=== PATIENT | male | born 1950 | race Caucasian/White ===

== ENCOUNTER 2017-12-08 23:13 | Inpatient (IN) | payer MEDICARE, OTHER ==
[~2017-12-08] VITALS: Ht 182.9 cm; Wt 76.2 kg
[2017-12-08] MEDS ORDERED: LOSA25TA13 PO (23:20)
[2017-12-08] MEDS ORDERED: HYDR-3326 PO (23:20)
[2017-12-08] MEDS ORDERED: ASPI81TA31 PO (23:20)
[2017-12-08] MEDS ORDERED: BUSP10TA3 PO (23:20)
[2017-12-08] MEDS ORDERED: CARV6.25 PO (23:20)
[2017-12-08] MEDS ORDERED: DOCU100C36 PO (23:20)
[2017-12-08 23:52] LABS: BASOPHILS % (AUTO) 0.6 % (0.0-2.0); EOSINOPHILS # (AUTO) 0.3 K/uL (0.0-0.7); EOSINOPHILS % (AUTO) 3.6 % (0.0-7.0); HEMATOCRIT 35.8 % (36.7-47.1); HEMOGLOBIN 12.4 g/dL (12.5-16.3); LYMPHOCYTES # (AUTO) 1.8 K/uL (20.0-40.0); MEAN CORPUSCULAR HEMOGLOBIN 30.8 uug (23.8-33.4); MEAN CORPUSCULAR HGB CONC 35 g/dL (32.5-36.3); MEAN CORPUSCULAR VOLUME 89.2 fL (73.0-96.2); MONOCYTES # (AUTO) 0.6 K/uL (2.0-10.0); MONOCYTES % (AUTO) 7.3 % (0.0-11.0); NEUTROPHILS # (AUTO) 5.4 K/uL (1.8-8.9); NEUTROPHILS % (AUTO) 66.5 % (38.5-71.5); PLATELET COUNT (AUTO) 171 K/uL (152-348); RED BLOOD CELL COUNT(AUTO) 4.02 MIL/uL (4.06-5.63); WHITE BLOOD COUNT (AUTO) 8.1 K/uL (3.6-10.2)
[2017-12-09] LABS: CARBON DIOXIDE 27 mmol/L (21-32); CHLORIDE 99 mmol/L (98-107); POTASSIUM 4.8 mmol/L (3.5-5.1); UREA NITROGEN, BLOOD 34 mg/dL (7-18)
[2017-12-09 00:02] LABS: GLUCOSE 463 mg/dL (74-106)
[2017-12-09] MEDS ORDERED: INSULIN REGULAR, HUMAN 1,000 UNITS/10 ML VIAL IV ONE (00:03)
[2017-12-09 00:06] LABS: ALANINE AMINOTRANSFERASE 27 U/L (16-63); ALKALINE PHOSPHATASE 96 U/L (50-136); ASPARTATE AMINOTRANSFERASE 11 U/L (15-37); BILIRUBIN,DIRECT 0.2 mg/dL (0.0-0.2); BILIRUBIN,TOTAL 0.8 mg/dL (0.2-1.0); TOTAL PROTEIN, SERUM 7.4 g/dL (6.4-8.2)
[2017-12-09 00:09] LABS: ACETAMINOPHEN < 2.0 ug/mL (10-30); ETHANOL < 3 MG/DL (0-0)
[2017-12-09 00:10] LABS: *BILIRUBIN,URIN NEGATIVE (NEGATIVE); *BLOOD, URINE NEGATIVE (NEGATIVE); *CLARITY,URINE CLEAR (CLEAR); *COLOR,URINE YELLOW (YELLOW); *KETONES,URINE NEGATIVE (NEGATIVE); *PROTEIN,URINE 1+ (NEGATIVE); *UROBILINOGEN,URINE 0.2 E.U./dl (NORMAL); LEUKOCYTE ESTERASE ,URINE NEGATIVE (NEGATIVE); NITRITE, URINE NEGATIVE (NEGATIVE)
[2017-12-09] MEDS ORDERED: IV NS 1000 ML 1,000 ML IV ONE (00:15)
[2017-12-09 00:21] LABS: *AMPHETAMINE, URINE NEGATIVE (NEGATIVE); *BARBITURATE, URINE NEGATIVE (NEGATIVE); *CANNABINOID, URINE NEGATIVE (NEGATIVE); *COCCAINE, URINE NEGATIVE (NEGATIVE); *OPIATE, URINE NEGATIVE (NEGATIVE); *PHENCYCLIDINE SCREEN,URINE NEGATIVE (NEGATIVE)
[2017-12-09 00:22] LABS: UGLUCOSE 3+ (NEGATIVE)
[2017-12-09 00:29] LABS: RBC,URINE 0-3 /HPF (0-3)
[2017-12-09 00:30] LABS: BACTERIA,URINE NONE SEEN /HPF (NONE SEEN); SQUAMOUS EPITHELIAL CELL,UR FEW /HPF (NONE SEEN); WBC,URINE 0-3 /HPF (0-3)
[2017-12-09] MEDS ORDERED: LORAZEPAM 0.5 MG TABLET PO PRN (02:45)
[2017-12-09] MEDS ORDERED: ACETAMINOPHEN 325 MG TABLET PO PRN (02:45)
[2017-12-09] MEDS ORDERED: MAG HYDROX/AL HYDROX/SIMETH 30 ML LIQUID UDC PO PRN (02:45)
[2017-12-09] MEDS ORDERED: MAGNESIUM HYDROXIDE 30 ML LIQUID UDC PO PRN (02:45)
[2017-12-09] MEDS ORDERED: TEMAZEPAM 7.5 MG CAPSULE PO PRN (02:45)
[2017-12-09] MEDS ORDERED: CLONIDINE HCL 0.1 MG TABLET PO SCH (03:30)
[2017-12-09 07:30] VITALS: BP 191/89
[2017-12-09] MEDS ORDERED: DEXTROSE 50% 50 ML DISP.SYRIN IV PRN (11:00)
[2017-12-09] MEDS: ASPIRIN 81 MG TAB.CHEW PO SCH (11:16)
[2017-12-09] MEDS: CARVEDILOL 6.25 MG TABLET PO SCH ×2 (11:16→17:44)
[2017-12-09] MEDS: LOSARTAN POTASSIUM 25 MG TABLET PO SCH (11:17)
[2017-12-09] MEDS: Z GUARD REMEDY PASTE 57 GM TUBE TOP SCH (11:26)
[2017-12-09] MEDS ORDERED: risperiDONE 0.5 MG TABLET PO SCH (11:45)
[2017-12-09] MEDS: BLOOD SUGAR DIAGNOSTIC 1 EACH STRIP VI SCH ×3 (12:07→20:19)
[2017-12-09] MEDS: INSULIN REGULAR, HUMAN 300 UNIT/3 ML VIAL SQ PRN ×2 (12:20→17:00)
[2017-12-09] MEDS: BENZTROPINE MESYLATE 0.5 MG TABLET PO SCH ×2 (12:39→17:45)
[2017-12-09 16:18] VITALS: BP 110/74
[2017-12-09] MEDS: busPIRone 5 MG TABLET PO SCH (17:44)
[2017-12-09] MEDS ORDERED: METFORMIN HCL 500 MG TABLET PO SCH (18:00)
[2017-12-09 20:05] VITALS: BP 159/67
[2017-12-09] MEDS: INSULIN REGULAR, HUMAN 300 UNITS/3 ML VIAL SQ PRN (20:16)
[2017-12-09] MEDS: risperiDONE 1 MG TABLET PO SCH (20:19)
[2017-12-09] MEDS: DIVALPROEX 250 MG TABLET.DR PO SCH (20:19)
[2017-12-09] MEDS ORDERED: INSULIN GLARGINE,HUM 300 UNITS/3 ML CARTRIDGE SQ SCH (21:00)
[2017-12-10] MEDS: BLOOD SUGAR DIAGNOSTIC 1 EACH STRIP VI SCH ×4 (06:23→21:12)
[2017-12-10] MEDS: INSULIN REGULAR, HUMAN 300 UNIT/3 ML VIAL SQ PRN ×3 (08:01→17:32)
[2017-12-10] MEDS: CARVEDILOL 6.25 MG TABLET PO SCH ×2 (08:04→17:00)
[2017-12-10] MEDS: ASPIRIN 81 MG TAB.CHEW PO SCH (08:05)
[2017-12-10] MEDS: LOSARTAN POTASSIUM 25 MG TABLET PO SCH (08:05)
[2017-12-10] MEDS: DIVALPROEX 250 MG TABLET.DR PO SCH ×2 (08:05→21:11)
[2017-12-10] MEDS: busPIRone 5 MG TABLET PO SCH ×2 (08:05→17:42)
[2017-12-10] MEDS: BENZTROPINE MESYLATE 0.5 MG TABLET PO SCH ×2 (08:05→17:42)
[2017-12-10] MEDS: risperiDONE 1 MG TABLET PO SCH ×2 (08:05→21:11)
[2017-12-10 08:08] VITALS: BP 142/83
[2017-12-10 16:22] VITALS: BP 99/52
[2017-12-10 20:05] VITALS: BP 127/79
[2017-12-10] MEDS: LORAZEPAM 0.5 MG TABLET PO PRN (20:11)
[2017-12-10] MEDS: INSULIN GLARGINE,HUM 300 UNITS/3 ML CARTRIDGE SQ SCH (21:07)
[2017-12-10] MEDS: INSULIN REGULAR, HUMAN 300 UNITS/3 ML VIAL SQ PRN (21:09)
[2017-12-10] MEDS: CLOTRIMAZOLE 1% CREAM 30 GM TUBE TOP SCH ×2 (21:30→22:33)
[2017-12-10] MEDS: NEOMY/BACITRAC/POLYMI OINT 28.35 GM TUBE TOP SCH ×2 (21:30→22:33)
[2017-12-11] MEDS: BLOOD SUGAR DIAGNOSTIC 1 EACH STRIP VI SCH ×4 (06:34→20:24)
[2017-12-11 07:30] VITALS: BP 148/77
[2017-12-11] MEDS: CLOTRIMAZOLE 1% CREAM 30 GM TUBE TOP SCH ×2 (08:35→20:27)
[2017-12-11] MEDS: DIVALPROEX 250 MG TABLET.DR PO SCH ×2 (08:36→20:18)
[2017-12-11] MEDS: CARVEDILOL 6.25 MG TABLET PO SCH ×2 (08:36→16:05)
[2017-12-11] MEDS: risperiDONE 1 MG TABLET PO SCH ×2 (08:36→20:18)
[2017-12-11] MEDS: LOSARTAN POTASSIUM 25 MG TABLET PO SCH (08:36)
[2017-12-11] MEDS: NEOMY/BACITRAC/POLYMI OINT 28.35 GM TUBE TOP SCH (08:36)
[2017-12-11] MEDS: ASPIRIN 81 MG TAB.CHEW PO SCH (08:36)
[2017-12-11] MEDS: busPIRone 5 MG TABLET PO SCH ×2 (08:37→16:05)
[2017-12-11] MEDS: BENZTROPINE MESYLATE 0.5 MG TABLET PO SCH ×2 (08:37→16:05)
[2017-12-11] MEDS: INSULIN REGULAR, HUMAN 300 UNIT/3 ML VIAL SQ PRN ×3 (08:40→16:14)
[2017-12-11 17:40] VITALS: BP 141/79
[2017-12-11] MEDS: LORAZEPAM 0.5 MG TABLET PO PRN (18:56)
[2017-12-11 19:47] VITALS: BP 169/77
[2017-12-11] MEDS: INSULIN GLARGINE,HUM 300 UNITS/3 ML CARTRIDGE SQ SCH (20:55)
[2017-12-12] MEDS: BLOOD SUGAR DIAGNOSTIC 1 EACH STRIP VI SCH ×4 (06:14→21:39)
[2017-12-12 07:30] VITALS: BP 135/85
[2017-12-12] MEDS: ASPIRIN 81 MG TAB.CHEW PO SCH (08:40)
[2017-12-12] MEDS: busPIRone 5 MG TABLET PO SCH ×2 (08:40→17:32)
[2017-12-12] MEDS: CARVEDILOL 6.25 MG TABLET PO SCH ×2 (08:41→17:33)
[2017-12-12] MEDS: BENZTROPINE MESYLATE 0.5 MG TABLET PO SCH ×2 (08:41→17:32)
[2017-12-12] MEDS: LOSARTAN POTASSIUM 25 MG TABLET PO SCH (08:42)
[2017-12-12] MEDS: risperiDONE 1 MG TABLET PO SCH ×3 (08:43→21:38)
[2017-12-12] MEDS: DIVALPROEX 250 MG TABLET.DR PO SCH ×3 (08:48→21:38)
[2017-12-12] MEDS: NEOMY/BACITRAC/POLYMI OINT 28.35 GM TUBE TOP SCH (09:15)
[2017-12-12] MEDS: CLOTRIMAZOLE 1% CREAM 30 GM TUBE TOP SCH ×2 (09:18→21:38)
[2017-12-12] MEDS: INSULIN REGULAR, HUMAN 300 UNIT/3 ML VIAL SQ PRN ×2 (11:52→17:09)
[2017-12-12 16:11] VITALS: BP 132/66
[2017-12-12 19:50] VITALS: BP 128/76
[2017-12-12] MEDS: INSULIN GLARGINE,HUM 300 UNITS/3 ML CARTRIDGE SQ SCH (21:40)
[2017-12-12] MEDS: INSULIN REGULAR, HUMAN 300 UNITS/3 ML VIAL SQ PRN (21:40)
[2017-12-13] MEDS: BLOOD SUGAR DIAGNOSTIC 1 EACH STRIP VI SCH ×4 (06:14→20:48)
[2017-12-13 07:30] VITALS: BP 145/79
[2017-12-13] MEDS: BENZTROPINE MESYLATE 0.5 MG TABLET PO SCH ×2 (08:16→16:15)
[2017-12-13] MEDS: CARVEDILOL 6.25 MG TABLET PO SCH ×2 (08:17→16:16)
[2017-12-13] MEDS: ASPIRIN 81 MG TAB.CHEW PO SCH (08:17)
[2017-12-13] MEDS: risperiDONE 1 MG TABLET PO SCH ×3 (08:17→20:41)
[2017-12-13] MEDS: DIVALPROEX 250 MG TABLET.DR PO SCH ×3 (08:17→20:41)
[2017-12-13] MEDS: LOSARTAN POTASSIUM 25 MG TABLET PO SCH (08:17)
[2017-12-13] MEDS: busPIRone 5 MG TABLET PO SCH ×2 (08:17→16:15)
[2017-12-13] MEDS: NEOMY/BACITRAC/POLYMI OINT 28.35 GM TUBE TOP SCH (08:18)
[2017-12-13] MEDS: CLOTRIMAZOLE 1% CREAM 30 GM TUBE TOP SCH ×2 (08:20→20:48)
[2017-12-13] MEDS: INSULIN REGULAR, HUMAN 300 UNIT/3 ML VIAL SQ PRN ×2 (11:34→16:38)
[2017-12-13 15:53] VITALS: BP 140/70
[2017-12-13 19:59] VITALS: BP 115/73
[2017-12-13] MEDS: INSULIN GLARGINE,HUM 300 UNITS/3 ML CARTRIDGE SQ SCH (20:44)
[2017-12-13] MEDS: INSULIN REGULAR, HUMAN 300 UNITS/3 ML VIAL SQ PRN (20:46)
[2017-12-13] MEDS: Z GUARD REMEDY PASTE 57 GM TUBE TOP SCH (20:47)
[2017-12-14] MEDS: BLOOD SUGAR DIAGNOSTIC 1 EACH STRIP VI SCH ×4 (06:35→20:28)
[2017-12-14 07:30] VITALS: BP 124/67
[2017-12-14] MEDS: risperiDONE 1 MG TABLET PO SCH ×3 (08:32→20:21)
[2017-12-14] MEDS: DIVALPROEX 250 MG TABLET.DR PO SCH ×3 (08:33→20:21)
[2017-12-14] MEDS: ASPIRIN 81 MG TAB.CHEW PO SCH (08:35)
[2017-12-14] MEDS: busPIRone 5 MG TABLET PO SCH ×2 (08:35→16:09)
[2017-12-14] MEDS: CARVEDILOL 6.25 MG TABLET PO SCH ×2 (08:36→16:10)
[2017-12-14] MEDS: LOSARTAN POTASSIUM 25 MG TABLET PO SCH (08:36)
[2017-12-14] MEDS: BENZTROPINE MESYLATE 0.5 MG TABLET PO SCH ×2 (08:37→16:09)
[2017-12-14] MEDS: NEOMY/BACITRAC/POLYMI OINT 28.35 GM TUBE TOP SCH (08:44)
[2017-12-14] MEDS: CLOTRIMAZOLE 1% CREAM 30 GM TUBE TOP SCH ×2 (08:49→20:21)
[2017-12-14] MEDS: INSULIN REGULAR, HUMAN 300 UNIT/3 ML VIAL SQ PRN ×2 (11:43→16:11)
[2017-12-14 15:09] VITALS: BP 125/63
[2017-12-14 20:25] VITALS: BP 124/55
[2017-12-14] MEDS: INSULIN REGULAR, HUMAN 300 UNITS/3 ML VIAL SQ PRN (20:30)
[2017-12-14] MEDS: INSULIN GLARGINE,HUM 300 UNITS/3 ML CARTRIDGE SQ SCH (20:31)
[2017-12-15] MEDS: BLOOD SUGAR DIAGNOSTIC 1 EACH STRIP VI SCH ×4 (06:33→20:45)
[2017-12-15 08:00] VITALS: BP 148/78
[2017-12-15] MEDS: DIVALPROEX 250 MG TABLET.DR PO SCH ×2 (08:17→12:49)
[2017-12-15] MEDS: BENZTROPINE MESYLATE 0.5 MG TABLET PO SCH ×2 (08:17→17:07)
[2017-12-15] MEDS: ASPIRIN 81 MG TAB.CHEW PO SCH (08:17)
[2017-12-15] MEDS: busPIRone 5 MG TABLET PO SCH ×2 (08:17→17:04)
[2017-12-15] MEDS: LOSARTAN POTASSIUM 25 MG TABLET PO SCH (08:18)
[2017-12-15] MEDS: CARVEDILOL 6.25 MG TABLET PO SCH ×2 (08:18→17:05)
[2017-12-15] MEDS: NEOMY/BACITRAC/POLYMI OINT 28.35 GM TUBE TOP SCH (08:26)
[2017-12-15] MEDS: CLOTRIMAZOLE 1% CREAM 30 GM TUBE TOP SCH ×2 (08:27→20:57)
[2017-12-15] MEDS: risperiDONE 1 MG TABLET PO SCH ×3 (08:29→20:39)
[2017-12-15] MEDS: INSULIN REGULAR, HUMAN 300 UNIT/3 ML VIAL SQ PRN (12:25)
[2017-12-15 16:00] VITALS: BP 134/73
[2017-12-15] MEDS: INSULIN REGULAR, HUMAN 300 UNIT/3 ML VIAL SQ SCH (16:30)
[2017-12-15 20:00] VITALS: BP 168/79
[2017-12-15] MEDS: INSULIN GLARGINE,HUM 300 UNITS/3 ML CARTRIDGE SQ SCH (20:47)
[2017-12-15] MEDS: INSULIN REGULAR, HUMAN 300 UNITS/3 ML VIAL SQ PRN (20:52)
[2017-12-15] MEDS ORDERED: DIVALPROEX 500 MG TABLET.DR PO SCH (21:00)
[2017-12-16] MEDS: BLOOD SUGAR DIAGNOSTIC 1 EACH STRIP VI SCH ×2 (06:53→12:10)
[2017-12-16 07:30] VITALS: BP 135/69
[2017-12-16] MEDS: INSULIN REGULAR, HUMAN 300 UNIT/3 ML VIAL SQ SCH ×2 (07:30→13:09)
[2017-12-16 07:35] LABS: BASOPHILS % (AUTO) 0.4 % (0.0-2.0); EOSINOPHILS # (AUTO) 0.1 K/uL (0.0-0.7); EOSINOPHILS % (AUTO) 1.4 % (0.0-7.0); HEMATOCRIT 34.4 % (36.7-47.1); HEMOGLOBIN 11.8 g/dL (12.5-16.3); LYMPHOCYTES # (AUTO) 1.5 K/uL (20.0-40.0); LYMPHOCYTES % (AUTO) 22.6 % (20.5-51.5); MEAN CORPUSCULAR HEMOGLOBIN 30.9 uug (23.8-33.4); MEAN CORPUSCULAR HGB CONC 34 g/dL (32.5-36.3); MEAN CORPUSCULAR VOLUME 90.3 fL (73.0-96.2); MONOCYTES # (AUTO) 0.6 K/uL (2.0-10.0); NEUTROPHILS # (AUTO) 4.4 K/uL (1.8-8.9); NEUTROPHILS % (AUTO) 66.6 % (38.5-71.5); PLATELET COUNT (AUTO) 139 K/uL (152-348); RED BLOOD CELL COUNT(AUTO) 3.81 MIL/uL (4.06-5.63); WHITE BLOOD COUNT (AUTO) 6.7 K/uL (3.6-10.2)
[2017-12-16 08:13] LABS: BILIRUBIN,TOTAL 0.8 mg/dL (0.2-1.0); CREATININE 1.9 mg/dL (0.6-1.3); MAGNESIUM 1.9 mg/dL (1.8-2.4); PHOSPHOROUS 3.3 mg/dL (2.5-4.9); POTASSIUM 4.4 mmol/L (3.5-5.1); TOTAL PROTEIN, SERUM 7.4 g/dL (6.4-8.2)
[2017-12-16 08:29] LABS: THYROID STIMULATING HORMONE 1.52 mIU/mL (0.358-3.740)
[2017-12-16] MEDS: busPIRone 5 MG TABLET PO SCH (08:54)
[2017-12-16] MEDS: LOSARTAN POTASSIUM 25 MG TABLET PO SCH (08:54)
[2017-12-16] MEDS: risperiDONE 1 MG TABLET PO SCH ×2 (08:54→13:37)
[2017-12-16] MEDS: DIVALPROEX 250 MG TABLET.DR PO SCH ×2 (08:54→13:37)
[2017-12-16] MEDS: CARVEDILOL 6.25 MG TABLET PO SCH (08:55)
[2017-12-16] MEDS: BENZTROPINE MESYLATE 0.5 MG TABLET PO SCH (08:55)
[2017-12-16] MEDS: ASPIRIN 81 MG TAB.CHEW PO SCH (08:55)
[2017-12-16] MEDS: CLOTRIMAZOLE 1% CREAM 30 GM TUBE TOP SCH (09:43)
[2017-12-16] MEDS: NEOMY/BACITRAC/POLYMI OINT 28.35 GM TUBE TOP SCH (09:44)
[2017-12-16] MEDS: INSULIN REGULAR, HUMAN 300 UNIT/3 ML VIAL SQ PRN (13:10)
[2017-12-16 16:22] VITALS: BP 148/66
== END 2017-12-16 16:15 | DRG 885 ==
LOC: ER 23:22 → GPS 12-09 02:00
PROVIDERS: ADMIT Psychiatry & Neurology Psychosomatic Medicine; ATTEND Internal Medicine
DX: F25.0 Schizoaffective disorder, bipolar type (principal); N17.0 Acute kidney failure with tubular necrosis; E11.65 Type 2 diabetes mellitus with hyperglycemia; E11.22 Type 2 diabetes mellitus with diabetic chronic kidney disease; D69.6 Thrombocytopenia, unspecified; L30.4 Erythema intertrigo; D64.9 Anemia, unspecified; Z79.82 Long term (current) use of aspirin; I12.9 Hypertensive chronic kidney disease with stage 1 through stage 4 chronic kidney disease, or unspecified chronic kidney disease; N18.9 Chronic kidney disease, unspecified; F41.9 Anxiety disorder, unspecified; F55.8 Abuse of other non-psychoactive substances; F19.10 Other psychoactive substance abuse, uncomplicated; S41.001A Unspecified open wound of right shoulder, initial encounter; X58.XXXA Exposure to other specified factors, initial encounter; Y92.129 Unspecified place in nursing home as the place of occurrence of the external cause
CPT/HCPCS: 36415; 70030-TC; 71045; 80164; 80307; 83735; 84100; 84443; 85025; 93005; A4663; G0480; G0480-TC; J1815; J3490; J7030